=== PATIENT | female | born 1960 | race Caucasian/White ===

== ENCOUNTER 2020-05-25 13:00 | Outpatient (CLI) | payer BC, SELFPAY | END 2020-05-25 13:01 | disposition home or self-care (01) | LOC: ANHCOVIDVC 13:00 | PROVIDERS: PCP Nurse Practitioner Family | DX: Z23 Encounter for immunization (principal) | CPT/HCPCS: 0001A; 91300 ==

== ENCOUNTER 2020-06-15 12:58 | Outpatient (CLI) | payer BC, SELFPAY | END 2020-06-15 12:59 | disposition home or self-care (01) | LOC: ANHCOVIDVC 12:58 | PROVIDERS: PCP Nurse Practitioner Family | DX: Z23 Encounter for immunization (principal) | CPT/HCPCS: 0002A; 91300 ==